=== PATIENT | female | born 1980 | race African-American/Black ===

== ENCOUNTER 2017-06-03 08:11 | Emergency (ER) | payer BC ==
[~2017-06-03] VITALS: Ht 170.2 cm; Wt 78.0 kg
[2017-06-03 10:59] LABS: BASOPHILS % 0.4 % (0.0-2.0); EOSINOPHILS % 1.5 % (0.0-5.0); HEMATOCRIT. 36.5 % (36.0-48.0); HEMOGLOBIN. 12.3 g/dL (12.0-16.0); LYMPHOCYTES % 25.6 % (20.0-50.0); MEAN CORPUSCULAR HEMOGLOBIN 30.6 pg (28.0-32.0); MEAN CORPUSCULAR VOLUME 90.9 fL (81.0-99.0); MEAN PLATELET VOLUME 9.5 fl (7.4-10.4); MONOCYTES % 10.2 % (2.0-8.0); NEUTROPHILS % 62.3 % (40.0-76.0); PLATELET 213 x1000/uL (130-400); RED BLOOD CELL COUNT 4.02 mill/uL (4.2-5.4)
[2017-06-03 11:02] LABS: UCG SCREEN POSITIVE
[2017-06-03 11:12] LABS: CARBON DIOXIDE 27 mEq/L (21-32); CHLORIDE 105 mEq/L (98-107)
[2017-06-03 11:15] VITALS: BP 139/77
[2017-06-03 11:27] LABS: B-HCG QUANTITATIVE 44665 mIU/mL (<3)
== END 2017-06-03 14:05 | disposition home or self-care (01) ==
LOC: ER 08:41
DX: O02.1 Missed abortion (principal)
CPT/HCPCS: 36415; 76801; 76817; 80048; 81025; 84702; 85025; 86850; 86900; 86901; 99285; J7030; Z7610